=== PATIENT | female | born 1945 | race Caucasian/White ===

== ENCOUNTER 2017-02-15 08:50 | Inpatient (IN) | payer MEDICARE, OTHER ==
[~2017-02-15] VITALS: Ht 160 cm; Wt 68.1 kg
[~2017-02-15 08:50] MED LIST: ACET325T9 PO; ALBU0.63 NEB; ASPI-482 PO; BENZ1LOZ48 MM; CALC-614 PO; CALC0.2530 PO; CALC600T4 PO; CETI10CA PO; DIGO125T16 PO; DOCU-150 PO; ESOM40CA PO; GLIP5TAB10 PO; GUAI600T47 PO; IBUP200C9 PO; LEVO100T PO; LEVO112T2 PO; METO5TAB PO; MULT-488 PO; OLOP2.5D OP; OXYM15MI4 NS; POLY17PO5 PO; SIMV20TA PO; SPIR1TAB PO; UBID30CA9 PO; calcium citrate
--- NOTE | 2017-02-15 09:40 | PHYS DOC ---
Past History Past Medical History: Cancer, CHF, COPD, Diabetes, Hypertension, Pneumonia, Other Past Surgical History: Cholecystectomy, Pacemaker, Tonsillectomy, Other Smoking: Non-smoker Alcohol Use: None Drug Use: None Adult General Chief Complaint Chief Complaint: SYNCOPE HPI HPI Patient is a 71 year old female who presents with complaint of head injury after suffering a syncopal episode this morning. Patient states that she was walking out to her car. Patient states that she started feeling short of breath but denied any lightheadedness prior to her episode. Patient states that she does not know how long she was unconscious but thinks it was at least for a few minutes. Patient states that she remembers waking up looking up to the [place] and realizing that she was on the roadway in the parking lot. Patient states that she felt very nauseous immediately after the episode. Patient states that currently she has a headache and continued nausea. Patient rates her pain currently as 3 out of 10. Patient has not taken any medications to help with her symptoms. Patient has history of pulmonary fibrosis secondary to radiation treatments for lymphoma several years ago and history of congestive heart failure. Patient denied any chest pain associated with her episode. Review of Systems Review of Systems Constitutional: Denies fever or chills [] Eyes: Denies change in visual acuity, redness, or eye pain [] HENT: Head injury [] Respiratory: Dyspnea on exertion [] Cardiovascular: Syncope, denies chest pain or edema [] GI: Denies abdominal pain, nausea, vomiting, bloody stools or diarrhea [] : Denies dysuria or hematuria [] Musculoskeletal: Denies back pain or joint pain [] Integument: Denies rash or skin lesions [] Neurologic: Denies headache, focal weakness or sensory changes [] Allergies Allergies Allergies Coded Allergies Type Severity Reaction Last Updated Verified bacitracin Allergy Intermediate Rash 11/09/15 Yes polymyxin B Allergy Intermediate Rash 11/09/15 Yes iodine Allergy Unknown 11/09/15 Yes metoprolol Allergy Unknown 11/09/15 Yes shellfish derived Allergy Unknown 11/09/15 Yes Physical Exam Physical Exam Constitutional: Alert, afebrile, no acute distress. [] HENT: Normocephalic, 0.5 cm abrasion to occipital scalp with minimal oozing of blood, bilateral external ears normal, oropharynx moist, no oral exudates, nose normal. [] Eyes: PERRLA, EOMI, conjunctiva normal, no discharge. [] Neck: Normal range of motion, no tenderness, supple, no stridor. [] Cardiovascular:Heart rate regular rhythm, no murmur [] Lungs & Thorax: Bilateral breath sounds clear to auscultation [] Abdomen: Bowel sounds normal, soft, no tenderness, no masses, no pulsatile masses. [] Skin: Warm, dry, no erythema, no rash. [] Back: No tenderness, no CVA tenderness. [] Extremities: No tenderness, no cyanosis, no clubbing, ROM intact, no edema. [] Neurologic: Alert and oriented X 3, normal motor function, normal sensory function, no focal deficits noted. [] Current Patient Data Vital Signs Vital Signs Date Time Temp Pulse Resp B/P (MAP) Pulse Ox O2 Delivery O2 Flow Rate FiO2 02/15/17 08:55 88 20 90 Room Air EKG EKG Interpreted by me: Heart rate 80, sinus rhythm, normal intervals, T-wave inversions in the lateral leads, no acute ST elevations or depressions, no acute changes from previous EKG on September 30, 2015 [] Radiology/Procedures Radiology/[place] [address] IMAGING REPORT Signed PATIENT: ALFONSO HUGHES ACCOUNT: [id number] : 1945 LOCATION: ER AGE: 71 SEX: F EXAM STATUS: PRE ER ORD. PHYSICIAN: MILENA SAUL MD REASON: fall, occipital head injury PROCEDURE: CT HEAD WO CONTRAST CT of the head without contrast, 02/15/2017: History: Syncope, fall, laceration There is mild cerebral atrophy. The ventricles are within normal limits in size. There is no shift of the midline structures. There is no evidence of acute intracranial hemorrhage or mass effect. There appears to be a small scalp hematoma in the left parietal region. No underlying fracture is evident. IMPRESSION: No acute intracranial abnormality is detected. RS Compliance Statement: One or more of the following individualized dose reduction techniques were utilized for this examination: 1. Automated exposure control 2. Adjustment of the mA and/or kV according to patient size 3. Use of iterative reconstruction technique DICTATED AND SIGNED BY: PADILLA TABOR MD DATE: 02/15/17 1009 CC: MILENA SAUL MD; [place] [address] IMAGING REPORT Signed PATIENT: ALFONSO HUGHES ACCOUNT: [id number] : 1945 LOCATION: ER AGE: 71 SEX: F EXAM STATUS: PRE ER ORD. PHYSICIAN: MILENA SAUL MD REASON: syncope, shortness of breath PROCEDURE: PORTABLE CHEST 1V Indication syncopal episode. Protocol study. A single view of the chest was obtained. Comparison is made to an examination 09/30/2015. Heart size and pulmonary vessels appear within normal limits. Bipolar cardiac pacing device and prosthetic cardiac valves are noted. There is slight blunting of the left costophrenic angle similar to the previous exam. A consolidated pneumonia is not seen on the single view submitted. Acute finding is not apparent. IMPRESSION: No acute finding seen in the chest DICTATED AND SIGNED BY: HARJIT SAVAGE MD DATE: 02/15/17 1027 CC: MILENA SAUL MD; JANNIE LOPES [] Course & Med Decision Making Course & Med Decision Making Pertinent Labs and Imaging studies reviewed. (See chart for details) The patient's occipital abrasion was cleansed with saline soaked gauze, treated with antibiotic ointment, and dressed with clean gauze. Patient's head CT negative for acute injury. The patient's symptoms are consistent with concussion symptoms from her head injury. Of concern is the patient's syncopal episode which appears to have happened without prodromal symptoms. Given patient 's health history it would be appropriate for the patient to be admitted for further monitoring and evaluation of the cause of her syncopal episode. I spoke with the patient's laborer poultry hatchery, Dr. Palafox, and he agreed to consult on patient in hospital. Patient was admitted to Dr. Dietz. Alexandrea Disclaimer Alexandrea Disclaimer This chart was dictated in whole or in part using Voice Recognition software in a busy, high-work load, and often noisy Emergency Department environment. It may contain unintended and wholly unrecognized errors or omissions. Departure Departure: Impression: Primary Impression: Syncope and collapse Additional Impressions: Closed head injury with concussion Pulmonary fibrosis Congestive heart failure Disposition: 01 HOME, SELF-CARE Admitting Physician: Patti Dietz Condition: STABLE Referrals: JANNIE LOPES (PCP) Problem Qualifiers Additional Impressions: Closed head injury with concussion Encounter type: initial encounter Loss of consciousness presence/duration: with LOC of 30 min or less Qualified Codes: S06.0X1A - Concussion with loss of consciousness of 30 minutes or less, initial encounter Congestive heart failure Congestive heart failure type: unspecified congestive heart failure type Congestive heart failure chronicity: chronic Qualified Codes: I50.9 - Heart failure, unspecified MILENA SAUL MD February 15, 2017 09:40
--- NOTE | 2017-02-15 09:51 | EKG ---
[address] [address] Test Date: 2017-02-15 Test Time: 09:09:23 Pat Name: ALFONSO HUGHES Department: Room: Gender: F Healthcare Social Worker: : 1945 Requested By: MILENA SAUL Order Number: [id number] Reading MD: Fuad Ernst Measurements Intervals Anthony Rate: 80 P: 59 DE: 174 QRS: -24 QRSD: 116 T: 110 QT: 394 QTc: 458 Interpretive Statements SINUS RHYTHM LEFT ATRIAL ABNORMALITY LEFTWARD AXIS INCOMPLETE RIGHT BUNDLE BRANCH BLOCK LVH WITH REPOLARIZATION ABNORMALITY ABNORMAL ECG Electronically Signed On 02-15-2017 13:25:08 CDT by Fuad Ernst
[2017-02-15] MEDS ORDERED: IV NORMAL SALINE 500ML 500 ML IV SCH (10:00)
[2017-02-15] MEDS ORDERED: ONDANSETRON PF 4 MG/2 ML VIAL. IV ONE (10:00)
[2017-02-15] MEDS ORDERED: fentaNYL PF 100 MCG/2 ML VIAL IV ONE (10:00)
[2017-02-15 10:02] LABS: BASO % 0 % (0-3); EOS # 0.1 x10^3/uL (0.0-0.7); EOS % 1 % (0-3); HEMATOCRIT 42.7 % (36.0-47.0); LYMPH % 10 % (24-48); MEAN CORPUSCULAR HEMOGLOBIN 27 pg (25-35); MEAN CORPUSCULAR HGB CONC 33 g/dL (31-37); MEAN CORPUSCULAR VOLUME 83 fL (79-100); MONO # 0.9 x10^3/uL (0.0-1.1); MONO % 9 % (0-9); NEUT # 7.9 x10^3uL (1.8-7.7); NEUT % 79 % (31-73); PLATELET COUNT 145 x10^3/uL (140-400); RED BLOOD COUNT 5.12 x10^6/uL (3.50-5.40); RED CELL DISTRIBUTION WIDTH 15.5 % (11.5-14.5)
--- NOTE | 2017-02-15 10:13 | RAD ---
CT of the head without contrast, 02/15/2017: History: Syncope, fall, laceration There is mild cerebral atrophy. The ventricles are within normal limits in size. There is no shift of the midline structures. There is no evidence of acute intracranial hemorrhage or mass effect. There appears to be a small scalp hematoma in the left parietal region. No underlying fracture is evident. IMPRESSION: No acute intracranial abnormality is detected. PQRS Compliance Statement: One or more of the following individualized dose reduction techniques were utilized for this examination: 1. Automated exposure control 2. Adjustment of the mA and/or kV according to patient size 3. Use of iterative reconstruction technique
[2017-02-15 10:22] LABS: ALBUMIN 3.5 g/dL (3.4-5.0); CALCIUM 8.1 mg/dL (8.5-10.1); CREATININE 1.4 mg/dL (0.6-1.0); GFR 36.9; MAGNESIUM 1.9 mg/dL (1.8-2.4); POTASSIUM 4.2 mmol/L (3.5-5.1); TOTAL PROTEIN 6.9 g/dL (6.4-8.2)
--- NOTE | 2017-02-15 10:34 | RAD ---
Indication syncopal episode. Protocol study. A single view of the chest was obtained. Comparison is made to an examination 09/30/2015. Heart size and pulmonary vessels appear within normal limits. Bipolar cardiac pacing device and prosthetic cardiac valves are noted. There is slight blunting of the left costophrenic angle similar to the previous exam. A consolidated pneumonia is not seen on the single view submitted. Acute finding is not apparent. IMPRESSION: No acute finding seen in the chest
[2017-02-15 10:40] LABS: BILIRUBIN,URINE NEG (NEG); CLARITY,URINE CLEAR; COLOR,URINE YELLOW; GLUCOSE,URINE NEG (NEG)
[2017-02-15 10:41] LABS: BACTERIA,URINE 0 /HPF (0-FEW); NITRITE,URINE NEG (NEG); SQUAMOUS EPITHELIAL CELL,UR OCC /LPF; UROBILINOGEN,URINE 0.2 mg/dL (0.2 mg/dL); WBC,URINE RARE /HPF (0-4)
[2017-02-15] MEDS ORDERED: IV NORMAL SALINE 1,000ML 1,000 ML IV SCH (11:20)
[2017-02-15] MEDS ORDERED: ACETAMINOPHEN 325 MG TABLET PO PRN (11:30)
[2017-02-15] MEDS ORDERED: fentaNYL PF 100 MCG/2 ML VIAL IV PRN (11:30)
[2017-02-15] MEDS ORDERED: ONDANSETRON PF 4 MG/2 ML VIAL. IV PRN ×2 (11:55→13:00)
[2017-02-15 13:02] VITALS: BP 172/82
[2017-02-15] MEDS ORDERED: AZEL137S3 NS (13:35)
[2017-02-15] MEDS ORDERED: PANT40TA3 PO (13:37)
[2017-02-15] MEDS ORDERED: CALC-614 PO (13:43)
[2017-02-15] MEDS ORDERED: LEVO125T5 PO (13:45)
--- NOTE | 2017-02-15 14:10 | HP ---
ADMIT DATE: 02/15/2017 REASON FOR ADMISSION: Syncopal episode. 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 She had an appointment with conservation enforcement officer today and was walking out to her car, she felt like she was getting short of breath, but without warning she states she blacked out. When she woke up, she was lying flat on her back, on the black top. She got up, got to her car. She was even planning on going to her appointment except that the back of her head was bleeding. She went in to see the nurses at the [facility] [place] and was transported to the Emergency Room at [facility]. This has never happened previously. 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 In 2005, she had two aortic bovine valve placed and a mitral porcine valve placed because of extensive calcifications in her valves. She has had also 50 basal cell carcinomas removed, mostly secondary to radiation. She has pulmonary fibrosis from the radiation, which she states she has about 50% lung function, but is not currently on oxygen. She has mild type 2 diabetes. In 2013, she had a colonoscopy and had a polyp removed, which bled and she became severely anemic and required blood transfusions and was subsequently severely iron deficient and required iron transfusions over the course of several weeks. She also has chronic lymphedema of the left arm. PAST SURGICAL HISTORY: Cholecystectomy, cataracts 2015, pacemaker placement, aortic bovine valve and mitral porcine valve replacement, bilateral mastectomies and thyroidectomy. ALLERGIES: BACITRACIN, IODINE, METOPROLOL, POLYMYXIN B, AND SHELLFISH. CURRENT MEDICATIONS: Reviewed and are available on the MAR. SOCIAL HISTORY: Does not smoke. No alcohol. 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 She also has her Master's from [employer]. 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 FAMILY HISTORY: She is one of six children. One sister with diabetes. Mother of lymphoma at 86, father at 46 in 1960 of a gas explosion at the [facility]. REVIEW OF SYSTEMS: The patient does report a slowly progressive shortness of breath, but still does not require oxygen. Otherwise, she does get recurrent basal cell carcinomas, but otherwise does not have any specific complaints related to her health. OBJECTIVE: VITAL SIGNS: Blood pressure 164/86, pulse 79, respirations 18, pulse ox 98% on 2 liters. GENERAL: Pleasant 71-year-old, in no acute distress. HEENT: External ear canals are normal. She has a dressing on her head covering the laceration. Her pupils were equal, round, react to light. Extraocular muscles were intact. Her nose is patent. Her throat was clear. NECK: Supple, without adenopathy. There is are bilateral carotid bruits, but I believe they from the cardiac murmurs, particularly on the left, radiates into the left neck. CARDIOVASCULAR: She has a systolic murmur with a normal hearing click on the aortic area and pulmonic area. Louder systolic murmur in the pulmonic area. ABDOMEN: Soft, nontender, no masses palpated. EXTREMITIES: Without edema. Also, she has lymphedema of the left arm. BREASTS: Bilateral mastectomies. NEUROLOGIC: Mental status: She is alert and oriented, excellent historian. Cranial nerves were intact. Sap Pi Architect strength was good. Equal motor strength. LABORATORY DATA: Normal CBC. Chemistry: BUN is 21; creatinine 1.4; glucose is 177, that is a random; calcium is 8.1. Alkaline phosphatase slightly elevated at 139. Coags were normal. Urinalysis: Small amount of protein, 100 mg/dL. CT of the head was negative. IMAGING: Chest x-ray without acute findings. It has the appearance of pulmonary fibrosis, although that is not mentioned. ASSESSMENT: 1. Syncopal episode, unknown etiology. 2. Extensive medical history after radiation from Hodgkin's lymphoma at age 6, to include thyroidectomy; bilateral aortic and mitral valve replacement; multiple basal cell carcinomas; gastroparesis; pulmonary fibrosis; pacemaker; history of GI bleed, which is resolved obviously. PLAN: Cardiology consult, Neurology consult, echocardiogram, carotid Dopplers and we will go from there. PAUL MARMOLEJO DO DR: Doug JOB#: [id number] / [id number]
[2017-02-15] MEDS ORDERED: METOCLOPRAMIDE 5 MG TABLET PO PRN (14:15)
[2017-02-15 14:58] VITALS: BP 114/65
[2017-02-15 15:05] VITALS: BP 114/64
[2017-02-15 15:06] VITALS: BP 143/66
[2017-02-15] MEDS: glipiZIDE 5 MG TABLET PO SCH ×2 (16:57→17:00)
[2017-02-15] MEDS ORDERED: glipiZIDE 5 MG TABLET PO SCH (17:00)
[2017-02-15 19:10] VITALS: BP 112/61
[2017-02-15] MEDS ORDERED: ALBUTEROL SULFATE 2.5 MG/3 ML NEBU. NEB SCH (20:00)
[2017-02-15] MEDS: CALCIUM CARBONATE 500 MG TABLET PO SCH (20:28)
[2017-02-15] MEDS: AZELASTINE NASAL SPRAY 30ML BOTTLE. NS SCH (20:28)
[2017-02-15] MEDS ORDERED: SIMVASTATIN 20 MG TABLET PO SCH (21:00)
[2017-02-15] MEDS ORDERED: NON FORMULARY ITEM (Albuterol Sulfate (Albuterol Sulfate Neb Soln) 0.63 MG) NEB SCH (21:00)
[2017-02-15] MEDS: ALBUTEROL SULFATE 2.5 MG/3 ML NEBU. NEB SCH (21:50)
[2017-02-15 22:50] VITALS: BP 93/48
[2017-02-16 02:59] VITALS: BP 101/56
[2017-02-16 05:15] VITALS: BP 98/50
[2017-02-16 06:37] LABS: BASO % 0 % (0-3); EOS # 0.1 x10^3/uL (0.0-0.7); EOS % 2 % (0-3); HEMATOCRIT 39.5 % (36.0-47.0); HEMOGLOBIN 12.8 g/dL (12.0-15.5); LYMPH # 1.2 x10^3/uL (1.0-4.8); LYMPH % 12 % (24-48); MEAN CORPUSCULAR HEMOGLOBIN 27 pg (25-35); MEAN CORPUSCULAR HGB CONC 32 g/dL (31-37); MEAN CORPUSCULAR VOLUME 84 fL (79-100); MONO % 11 % (0-9); NEUT % 75 % (31-73); PLATELET COUNT 141 x10^3/uL (140-400); RED BLOOD COUNT 4.73 x10^6/uL (3.50-5.40); RED CELL DISTRIBUTION WIDTH 15.5 % (11.5-14.5); WHITE BLOOD COUNT 9.4 x10^3/uL (4.0-11.0)
[2017-02-16 06:50] LABS: ALBUMIN 3.1 g/dL (3.4-5.0); CALCIUM 7.6 mg/dL (8.5-10.1); CREATININE 1.3 mg/dL (0.6-1.0); GFR 40.2; POTASSIUM 4.1 mmol/L (3.5-5.1); TOTAL BILIRUBIN 0.7 mg/dL (0.2-1.0); TOTAL PROTEIN 6.2 g/dL (6.4-8.2)
[2017-02-16] MEDS ORDERED: LEVOTHYROXINE 125 MCG TABLET PO SCH (07:00)
--- NOTE | 2017-02-16 07:43 | RAD ---
Carotid ultrasound, 02/15/2017: History: Syncope Duplex evaluation of the carotid arteries in neck was performed including grayscale, color-flow and spectral Doppler analysis. There is moderate partially calcified plaque in the common carotid arteries and at both carotid bifurcations. The peak systolic velocity in the right internal carotid artery is 110 cm per sec with an end-diastolic velocity 16 cm/s. The internal carotid to common carotid artery ratio is 1.2. The Doppler findings suggest narrowing in the 0-50% diameter range. On the left the peak systolic velocity in the internal carotid artery is 90 cm/s. The end-diastolic velocity at this level is 22 cm/s. The internal carotid to common carotid artery ratio is 1.1. Antegrade flow is present in both vertebral arteries in the neck. IMPRESSION: Moderate atherosclerotic plaquing in both common carotid arteries and at the carotid bifurcations with underlying luminal narrowing of the proximal internal carotid arteries in the 0-50% diameter range bilaterally. Note: Stenosis calculations for CT, MRA and conventional angiography are based upon determination of the distal ICA diameter in accordance with the NASCET methodology. Stenosis calculations for Doppler studies are derived from validated velocity criteria which are known to correlate with NASCET methodology of determining stenosis.
[2017-02-16] MEDS: glipiZIDE 5 MG TABLET PO SCH ×2 (07:59→08:00)
[2017-02-16] MEDS: AZELASTINE NASAL SPRAY 30ML BOTTLE. NS SCH (08:00)
[2017-02-16] MEDS: CALCIUM CARBONATE 500 MG TABLET PO SCH (08:02)
[2017-02-16] MEDS ORDERED: PANTOPRAZOLE 40 MG TABLET. PO SCH (09:00)
[2017-02-16] MEDS ORDERED: hydroCHLOROthiazide 25 MG TABLET PO SCH (09:00)
[2017-02-16] MEDS ORDERED: ASPIRIN ENTERIC COATED 81 MG TABLET.DR. PO SCH (09:00)
[2017-02-16] MEDS ORDERED: SPIRONOLACTONE 25 MG TABLET PO SCH (09:00)
[2017-02-16] MEDS ORDERED: DIGOXIN 125 MCG TABLET PO SCH (09:00)
[2017-02-16] MEDS ORDERED: CALCITRIOL 0.25 MCG CAPSULE PO SCH (09:00)
--- NOTE | 2017-02-16 09:02 | PDOC2 ---
CONSULT Date of Admission DATE: 02/16/17 TIME: 08:47 Reason for Consult: Syncope Referring Physician: Dr Dietz Problem List Problems Medical Problems: (1) Closed head injury with concussion Status: Acute (2) Congestive heart failure Status: Acute (3) Pulmonary fibrosis Status: Acute (4) Syncope and collapse Status: Acute History of Present Illness Ms. Spencer is a 71-year-old female who presented to the ER yesterday with chief complaint of syncope. The patient has a history of Hodgkin's lymphoma status post wall radiation several years ago. She subsequently developed mitral and aortic valve disease and has since had a bioprosthetic valve placed in the mitral and aortic disease. In addition, she has known moderate coronary disease based on a cardiac catheterization done several years ago history of present illness of the proximal right coronary artery, and 50 percent stenosis of the obtuse marginal branch. She also has underlying essential hypertension hyperlipidemia, sick sinus syndrome status post permanent pacemaker, and chronic constriction with heart failure with preserved ejection fraction. Over the last several months she has noticed progressive dyspnea. 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 when was stopped to talk. She feels she used most of her air and then when tried to walk to her car could not make it. She stopped to get her bearings and the next thing she knew was waking up looking at the gloria. Got up into car and realized she had hit her head so presented to the nursing station whol called EMS. She denies any recent episodes of chest pains or shortness of breath. She denies any palpitations, or previous episodes. ROS: Review of 10 organ systems is negative except as above. Allergies: Bacitracin, iodine, metoprolol, polymyxin B, shellfish Medications albuterol sulfate 2.5 mg/0.5 mL solution for nebulization Aspir-81 81 mg tablet,delayed releaseTake 1 tablet(s) every day by oral route. AZELASTINE HCL .1 % SOLN CALCITRIOL .25 MCG CAPS GLIPIZIDE ER 2.5 MG TB24 LEVOTHYROXINE SODIUM 112 MCG TABS metoclopramide hcl 5 mg tabs as needed before bedtime NexIUM 40 mg capsule,delayed release Take 1 capsule(s) every day by oral route as needed. SIMVASTATIN 20 MG TABS SPIRONOLACTONE/[id number] MG TABS Family History Father - No current problems or disability Mother - No current problems or disability Social History Smoking Status: Never smoker Non-smoker Surgical History Surgical History not reviewed (last reviewed 04/04/2016) Cardiac Pacemaker - 10/18/2011 AORTIC MITRAL VALVE REPLACEMENT Past Medical History Atrial Fibrillation: Y Congestive Heart Failure (CHF): Y Pacemaker: Y Valvular Heart Disease: Y Diabetes: Y - type 2 Breast Cancer: Y Other Cancer: (no answer) - Hodgkins lymphoma Multiple skin cancers Adenocarcinoma of thyroid Physical Exam Constitutional: General Appearance: well-nourished and appears stated age. Level of Distress: comfortable. Psychiatric: Mental Status: alert and normal affect. Orientation: oriented to time, place, and person. Eyes: Lids and Conjunctivae: anicteric and no discharge. Pupils: PERRLA. ENMT: Ears: no lesions on external ear. Nose: no lesions on external nose. Oropharynx: no cyanosis or pallor. Neck: Neck: supple and no masses. Carotid Arteries: no bruits or thrills and bilateral normal upstroke. Jugular Veins: normal jugular venous pressure. Cervical Lymph Nodes: non tender or not enlarged. Thyroid: not enlarged or non tender. Lungs: Respiratory Effort: unlabored. Chest Exam: no chest wall tenderness. Auscultation: no wheezing or rhonchi and clear. Cardiovascular: Precordial Exam: non displaced focal PMI. Rate And Rhythm: regular. Heart Sounds: no rub, gallop, or click and normal S1 and physiologically split S2. Systolic Murmur: grade 2/6 at the apex and the RUSB. Extremities: no cyanosis or edema. Peripheral Pulses: Pulses: full and equal in all extremities except if noted. Radial Pulse: normal. Femoral Pulse: normal. Abdomen: Inspection and Palpation: non distended or tender, no bruit or masses, and soft. Neurologic: Neurological: Grossly intact with no focal deficits. Skin: Inspection and Palpation: warm and dry. Procedure: LEXISCAN NUCLEAR STRESS TEST IMPRESSION (03/24/2016): Normal myocardial perfusion scan Normal left ventricular systolic function Ejection fraction: 70%. There is no stress induced left ventricular dilatation or increase in lung to heart ratio. The stress ECG is non-interpretable in view of baseline abnormalities. There were PVCs during Lexiscan infusion There was no stress induced chest pain. No previous study available for comparison. CAROTID ARTERY DUPLEX STUDY IMPRESSION ( 03/24/16):. Mild intimal disease in carotid bulb, ICA, ECA and CCA bilaterally.. There were no significant flow limiting lesions in carotid bulb, ICA, ECA or CCA. Doppler analysis revealed < 50% stenosis in carotid arteries bilaterally.. Normal antegrade flow was noted in both vertebral arteries.. ECHOCARDIOGRAM IMPRESSION (02/29/2016):. There is mild to moderate concentric left ventricular hypertrophy. There is paradoxical septal motion consistent with a pacemaker. The left ventricular systolic function is normal with an estimated ejection fraction of 60-65%. There is evidence of left ventricular pseudonormalization suggestive of stage II diastolic dysfunction. There is a pacemaker or defibrillator lead seen in the right heart chambers. The inferior vena cava is dilated but does respond normally to respiration, which is consistent with mildly elevated right atrial pressure. There is a bioprosthetic valve with calcification. There is a peak gradient of 71mmHg and a mean gradient of 8mmHg, which is acceptable. There is a bioprosthetic mitral valve with calcification and a mitral valve area of 2.5 cm2. There is mild tricuspid regurgitation. The estimated pulmonary artery systolic pressure is 55 mmHg, consistent with moderate pulmonary hypertension. Compared to the report (images were not available for review) of the study dated 09/25/2014, the pulmonary hypertension has increased slightly. Assessment / Plan 1. Syncope - Possible from hypoxia - plan for 6 min walk. Echo is pending. Negative enzymes and pacemaker check in ER showed appropriate function. 2. Coronary arteriosclerosis in ione artery - Last stress test was in 02/2016 showing normal perfusion. She has been having progressive dyspnea. 3. History of tissue graft aortic and mitral valve replacement - plan for echo 4. Pulmonary hypertension - 6 min walk to assess O2 needs 5. Chronic diastolic heart failure - Clinically compensated 6. Sick sinus syndrome s/p Pacemaker - function appropriate 7 Benign essential hypertension - controlled continue same medications. 8. Hyperlipidemia - Continue statin therapy 9. Moderate carotid disease - continue aspirin and statin therapy Current Medications Current Medications Sodium Chloride 500 ml @ 500 mls/hr Q1H IV Last administered on 02/15/17 09:58 ; Start 02/15/17 at 10:00; Stop 02/15/17 at 10:00; Status DC Fentanyl Citrate (Fentanyl 2ml Vial) 25 mcg 1X ONCE IV Last administered on 09:58; Start 02/15/17 at 10:00; Stop 02/15/17 at 10:01; Status DC Ondansetron HCl (Zofran) 4 mg 1X ONCE IV Last administered on 02/15/17 09:58; Start 02/15/17 at 10:00; Stop 02/15/17 at 10:01; Status DC Ondansetron HCl (Zofran) 4 mg PRN Q4HRS PRN IV NAUSEA/VOMITING; Start 02/15/17 at 11:55; Stop 02/16/17 at 11:54 Fentanyl Citrate (Fentanyl 2ml Vial) 25 mcg PRN Q2HR PRN IV PAIN; Start at 11:30; Stop 02/16/17 at 11:29 Sodium Chloride 1,000 ml @ 75 mls/hr [id number] IV ; Start 02/15/17 at 11:20; Stop 02/15/17 at 14:19; Status DC Acetaminophen (Tylenol) 650 mg PRN Q4HRS PRN PO FEVER; Start 02/15/17 at 11:30; Stop 02/16/17 at 11:29 Ondansetron HCl (Zofran) 4 mg PRN Q8HRS PRN IV NAUSEA/VOMITING; Start 02/15/17 at 13:00 Aspirin (Aspirin Enteric Coated) 81 mg DAILY PO Last administered on 02/16/17 08:01; Start 02/16/17 at 09:00 Azelastine HCl (Astelin) 1 spray BID NS Last administered on 02/16/17 08:00; Start 02/15/17 at 21:00 Calcitriol (Rocaltrol) 0.25 mcg DAILY PO Last administered on 02/16/17 08:03; Start 02/16/17 at 09:00 Digoxin (Lanoxin) 125 mcg DAILY PO Last administered on 02/16/17 08:01; Start 02/16/17 at 09:00 Glipizide (Glucotrol) 5 mg BIDWMEALS PO ; Start 02/15/17 at 17:00; Stop 02/16/17 at 08:14; Status DC Levothyroxine Sodium (Synthroid) 125 mcg DAILY07 PO Last administered on 06:04; Start 02/16/17 at 07:00 Metoclopramide HCl (Reglan) 5 mg PRN QHS PRN PO acid reflux; Start 02/15/17 at 14:15 Pantoprazole Sodium (Protonix) 40 mg DAILY PO Last administered on 02/16/17 08: 02; Start 02/16/17 at 09:00 Simvastatin (Zocor) 20 mg HS PO Last administered on 02/15/17 20:28; Start 02/15 at 21:00 Non-Formulary Medication 0.63 mg BID NEB ; Start 02/15/17 at 21:00; Stop 02/15/17 at 21:00; Status DC Calcium Carbonate/ Glycine (Oscal) 500 mg BID PO Last administered on 02/16/17 08:02; Start 02/15/17 at 21:00 Non-Formulary Medication 400 mg QODAY PO ; Start 02/17/17 at 09:00; Stop 02/17/17 at 09:00; Status DC Non-Formulary Medication 1 each QODAY PO ; Start 02/17/17 at 09:00; Stop 02/17/17 at 09:00; Status DC Spironolactone (Aldactone) 25 mg DAILY PO Last administered on 02/16/17 08:00; Start 02/16/17 at 09:00 Hydrochlorothiazide (Hydrodiuril) 25 mg DAILY PO Last administered on 02/16/17 08:00; Start 02/16/17 at 09:00 Albuterol Sulfate (Ventolin) 2.5 mg RTBID NEB ; Start 02/15/17 at 20:00; Stop 02/15/17 at 20:00; Status DC Albuterol Sulfate (Ventolin) 0.63 mg RTBID NEB Last administered on 02/15/17 21 :50; Start 02/15/17 at 20:00 Glipizide (Glucotrol) 2.5 mg DAILYWSUP PO ; Start 02/16/17 at 17:00; Stop at 17:00; Status DC Glipizide (Glucotrol) 2.5 mg DAILYWSUP PO Last administered on 02/15/17 17:00; Start 02/15/17 at 17:00 Glipizide (Glucotrol) 5 mg DAILYWLUN PO ; Start 02/16/17 at 12:00 Active Scripts Active Protonix (Pantoprazole Sodium) 40 Mg Tablet.dr 1 Tab PO DAILY Azelastine Hcl 137 Mcg/0.137 Ml [place].pump 1 Spr NS BID Reported Levothyroxine Sodium 125 Mcg Tablet 1 Tab PO DAILY Calcium Citrate 200 Mg Tablet 400 Mg PO BID Albuterol Sulfate Neb Soln (Albuterol Sulfate) 0.63 Mg/3 Ml Vial.neb 0.63 Mg NEB BID Glipizide 5 Mg Tablet 5 Mg PO DAILYWLUN Metoclopramide Hcl 5 Mg Tablet 5 Mg PO PRN QHS PRN Calcium Citrate 200 Mg Tablet 400 Mg PO QODAY Zocor (Simvastatin) 20 Mg Tablet 20 Mg PO HS Calcitriol 0.25 Mcg Capsule 0.25 Mcg PO DAILY Lanoxin (Digoxin) 125 Mcg Tablet 125 Mcg PO DAILY Aldactazide 25-25 Tablet (Spironolact/Hydrochlorothiazid) 1 Each Tablet 1 Each PO QODAY Mucinex (Guaifenesin) 600 Mg Tablet.er 600 Mg PO TWICE WEEKLY Aspir 81 (Aspirin) 81 Mg Tablet. 81 Mg PO DAILY Allergies: Coded Allergies: bacitracin (Verified Allergy, Intermediate, Rash, 11/09/15) polymyxin B (Verified Allergy, Intermediate, Rash, 11/09/15) iodine (Verified Allergy, Unknown, 11/09/15) Pt states that she is only allergic to the IV iodine. The topical iodine "does not give me any problems". metoprolol (Verified Allergy, Unknown, 11/09/15) shellfish derived (Verified Allergy, Unknown, 11/09/15) VITALS Vital Signs Date Time Temp Pulse Resp B/P (MAP) Pulse Ox O2 Delivery O2 Flow Rate FiO2 02/16/17 08:01 78 98/50 02/16/17 05:15 98.0 17 97 Nasal Cannula 1.0 Labs Laboratory Tests Test 02/15/17 09:10 02/15/17 09:43 02/15/17 10:15 02/15/17 16:39 Glucose (Fingerstick) 173 mg/dL (70-99) 147 mg/dL (70-99) White Blood Count 10.0 x10^3/uL (4.0-11.0) Red Blood Count 5.12 x10^6/uL (3.50-5.40) Hemoglobin 14.0 g/dL (12.0-15.5) Hematocrit 42.7 % (36.0-47.0) Mean Corpuscular Volume 83 fL (79-100) Mean Corpuscular Hemoglobin 27 pg (25-35) Mean Corpuscular Hemoglobin Concent 33 g/dL (31-37) Red Cell Distribution Width 15.5 % (11.5-14.5) Platelet Count 145 x10^3/uL (140-400) Neutrophils (%) (Auto) 79 % (31-73) Lymphocytes (%) (Auto) 10 % (24-48) Monocytes (%) (Auto) 9 % (0-9) Eosinophils (%) (Auto) 1 % (0-3) Basophils (%) (Auto) 0 % (0-3) Neutrophils # (Auto) 7.9 x10^3uL (1.8-7.7) Lymphocytes # (Auto) 1.0 x10^3/uL (1.0-4.8) Monocytes # (Auto) 0.9 x10^3/uL (0.0-1.1) Eosinophils # (Auto) 0.1 x10^3/uL (0.0-0.7) Basophils # (Auto) 0.0 x10^3/uL (0.0-0.2) Prothrombin Time 11.0 SEC (9.4-11.4) Prothromb Time International Ratio 1.1 (0.9-1.1) Activated Partial Thromboplast Time 24 SEC (23-33) Sodium Level 139 mmol/L (136-145) Potassium Level 4.2 mmol/L (3.5-5.1) Chloride Level 101 mmol/L (98-107) Carbon Dioxide Level 30 mmol/L (21-32) Anion Gap 8 (6-14) Blood Urea Nitrogen 21 mg/dL (7-20) Creatinine 1.4 mg/dL (0.6-1.0) Estimated GFR (Cockcroft-Gault) 36.9 BUN/Creatinine Ratio 15 (6-20) Glucose Level 177 mg/dL (70-99) Calcium Level 8.1 mg/dL (8.5-10.1) Magnesium Level 1.9 mg/dL (1.8-2.4) Total Bilirubin 1.0 mg/dL (0.2-1.0) Aspartate Amino Transf (AST/SGOT) 29 U/L (15-37) Alanine Aminotransferase (ALT/SGPT) 36 U/L (14-59) Alkaline Phosphatase 139 U/L (46-116) Creatine Kinase 43 U/L (26-192) Creatine Kinase MB (Mass) 0.5 ng/mL (0.0-3.6) Creatine Kinase MB Relative Index 1.2 % (0-4) Troponin I Quantitative < 0.017 ng/mL (0-0.055) Total Protein 6.9 g/dL (6.4-8.2) Albumin 3.5 g/dL (3.4-5.0) Albumin/Globulin Ratio 1.0 (1.0-1.7) Urine Collection Type Void Urine Color Yellow Urine Clarity Clear Urine pH 7.0 Urine Specific [place] 1.015 Urine Protein 100 mg/dl (NEG-TRACE) Urine Glucose (UA) Neg mg/dL (NEG) Urine Ketones (Stick) Neg mg/dL (NEG) Urine Blood Small (NEG) Urine Nitrite Neg (NEG) Urine Bilirubin Neg (NEG) Urine Urobilinogen Dipstick 0.2 mg/dL (0.2 mg/dL) Urine Leukocyte Esterase Neg (NEG) Urine RBC 1-2 /HPF (0-2) Urine WBC Rare /HPF (0-4) Urine Squamous Epithelial Cells Occ /LPF Urine Bacteria 0 /HPF (0-FEW) Test 02/15/17 20:10 02/16/17 06:01 Glucose (Fingerstick) 170 mg/dL (70-99) White Blood Count 9.4 x10^3/uL (4.0-11.0) Red Blood Count 4.73 x10^6/uL (3.50-5.40) Hemoglobin 12.8 g/dL (12.0-15.5) Hematocrit 39.5 % (36.0-47.0) Mean Corpuscular Volume 84 fL (79-100) Mean Corpuscular Hemoglobin 27 pg (25-35) Mean Corpuscular Hemoglobin Concent 32 g/dL (31-37) Red Cell Distribution Width 15.5 % (11.5-14.5) Platelet Count 141 x10^3/uL (140-400) Neutrophils (%) (Auto) 75 % (31-73) Lymphocytes (%) (Auto) 12 % (24-48) Monocytes (%) (Auto) 11 % (0-9) Eosinophils (%) (Auto) 2 % (0-3) Basophils (%) (Auto) 0 % (0-3) Neutrophils # (Auto) 7.0 x10^3uL (1.8-7.7) Lymphocytes # (Auto) 1.2 x10^3/uL (1.0-4.8) Monocytes # (Auto) 1.0 x10^3/uL (0.0-1.1) Eosinophils # (Auto) 0.1 x10^3/uL (0.0-0.7) Basophils # (Auto) 0.0 x10^3/uL (0.0-0.2) Sodium Level 142 mmol/L (136-145) Potassium Level 4.1 mmol/L (3.5-5.1) Chloride Level 105 mmol/L (98-107) Carbon Dioxide Level 29 mmol/L (21-32) Anion Gap 8 (6-14) Blood Urea Nitrogen 21 mg/dL (7-20) Creatinine 1.3 mg/dL (0.6-1.0) Estimated GFR (Cockcroft-Gault) 40.2 BUN/Creatinine Ratio 16 (6-20) Glucose Level 100 mg/dL (70-99) Calcium Level 7.6 mg/dL (8.5-10.1) Magnesium Level 2.0 mg/dL (1.8-2.4) Total Bilirubin 0.7 mg/dL (0.2-1.0) Aspartate Amino Transf (AST/SGOT) 18 U/L (15-37) Alanine Aminotransferase (ALT/SGPT) 28 U/L (14-59) Alkaline Phosphatase 117 U/L (46-116) Total Protein 6.2 g/dL (6.4-8.2) Albumin 3.1 g/dL (3.4-5.0) Albumin/Globulin Ratio 1.0 (1.0-1.7) HUY COVARRUBIAS APRN February 16, 2017 09:02
--- NOTE | 2017-02-16 09:03 | CARD ---
APPROVED REPORT EXAM: Two-dimensional and M-mode echocardiogram with Doppler and color Doppler. Other Information Quality : Average Rhythm : NSR INDICATION Syncope 2D DIMENSIONS RVDd1.8 (2.9-3.5cm)Left Atrium(2D)3.6 (1.6-4.0cm) IVSd0.9 (0.7-1.1cm)Aortic Root(2D)2.5 (2.0-3.7cm) LVDd4.1 (3.9-5.9cm)LVOT Diameter2.0 (1.8-2.4cm) PWd1.0 (0.7-1.1cm)LVDs2.0 (2.5-4.0cm) FS (%) 50.1 %SV60.1 ml LVEF(%)61.9 (>50%) Aortic Valve AoV Peak Aidan.219.2cm/sAoV VTI38.4cm AO Peak GR.19.2mmHgLVOT Peak Aidan.129.6cm/s LVOT VTI 27.01cmAO Mean GR.10mmHg ADAMA (VMAX)1.78ds4JEY (VTI)2.21cm2 Mitral Valve MV E Gzswfpcm786.3cm/sMV E Peak Gr.19mmHg MV DECEL [id number] A Hhtooegg20.1cm/s MV E Mean Gr.7mmHgMV HPJ57nw E/A Ratio3.1MV A Uzkzcytu196yd MVA (PHT)4.50cm2 Tricuspid Valve TR P. Rjcdykbo312fo/sRAP FUCERLAO29hnDa TR Peak Gr.87laPyADOP11iyLe LEFT VENTRICLE The left ventricle is normal size. There is normal left ventricular wall thickness. Left ventricle sy stolic function is normal. The Ejection Fraction is 60-65%. Septal motion consistent with post-operat kvng state. The left ventricular diastolic function and filling is normal for age. RIGHT VENTRICLE The right ventricle is normal size. The right ventricular systolic function is normal. There is a pac emaker lead seen in the RV/RA. ATRIA The left atrium size is normal. The right atrium size is normal. The interatrial septum is intact wit h no evidence for an atrial septal defect or patent foramen ovale as noted on 2-D or Doppler imaging. AORTIC VALVE The aortic valve is moderately calcified. Doppler and Color Flow revealed no significant aortic regur gitation. There is no significant aortic valvular stenosis. There is a bioprosthetic aortic valve pro sthesis. Bioprosthesis leaflets are not well visualized. MITRAL VALVE Mitral annular calcification is severe. The mitral valve leaflets are thickened and calcified. There is no mitral valve stenosis. Doppler and Color Flow revealed mild mitral regurgitation. There is a pr osthetic mitral valve. TRICUSPID VALVE The tricuspid valve is not well visualized. Doppler and Color Flow revealed moderate to severe tricus pid regurgitation. There is severe pulmonary hypertension. The PA pressure was estimated at 88 mmHg. PULMONIC VALVE The pulmonic valve is not well visualized. Doppler and Color Flow revealed mild pulmonic valvular reg urgitation. GREAT VESSELS The aortic root is normal in size. Pulmonary veins not recorded. The IVC is dilated and collapses <50 % with inspiration. PERICARDIAL EFFUSION There is no evidence of significant pericardial effusion. Critical Notification Critical Value: No <Conclusion> Left ventricle systolic function is normal. The Ejection Fraction is 60-65%. Septal motion consistent with post-operative state. The right ventricular systolic function is normal. There is a bioprosthetic aortic valve prosthesis. Bioprosthesis leaflets are not well visualized. There is a prosthetic mitral valve. Doppler and Color Flow revealed moderate to severe tricuspid regurgitation. There is severe pulmonary hypertension. The PA pressure was estimated at 88 mmHg. Doppler and Color Flow revealed mild pulmonic valvular regurgitation. There is no evidence of significant pericardial effusion.
[2017-02-16] MEDS: ALBUTEROL SULFATE 2.5 MG/3 ML NEBU. NEB SCH (09:46)
[2017-02-16 10:49] VITALS: BP 115/60
--- NOTE | 2017-02-16 11:02 | CONS ---
DATE OF CONSULTATION: 02/15/2017 NEUROLOGIC CONSULT REFERRING PHYSICIAN: Dr. Patti Dietz. REASON FOR CONSULTATION: Syncope. 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 According to the patient, she was walking to her car, all of a sudden she became very short of breath and subsequently she lost consciousness and fell backwards on grounds. The patient wakeup quickly. She was somewhat confused for a short period of time, but she did not have any convulsions or prolonged confusion. The patient stated the night before, she was very constipated and she took 2 tablets of Dulcolax and took Metamucil and prune juice in the morning for constipation. The patient denies any prior symptoms before the fall as palpitation, weakness or paresthesia. In the Emergency Room, her pulse was 88 with oxygen saturations of 90%. The patient stated she used to have low oxygen saturation. Initial nonenhanced head CT scan revealed no acute intracranial abnormalities. Small scalp hematoma in the right region secondary to recent fall. Currently, the patient complains of mild headaches over the left occipital region. She denies any medical or neurological complaints otherwise. PAST MEDICAL HISTORY: Quite extensive, includes stage 3 history of chronic kidney disease, status post aortic and mitral valve replacement; history of Hodgkin's lymphoma diagnosed at age of 6, required extensive therapy of radiation and chemotherapy; anemia; history of colonoscopy and required removal of a polyp; chronic lymphedema of the left arm; skin cancer; breast cancer required bilateral mastectomy; history of iron deficiency anemia. PAST SURGICAL HISTORY: Significant for bilateral mastectomy, cholecystectomy, status post lumbar spine surgery. Cataract removal in 2016, pacemaker placement and aortic and mitral valve replacements along with thyroidectomy. SOCIAL HISTORY: The patient resides in a mother' home at [facility]. She denies smoking, alcohol drinking, or illicit drug use. ALLERGIES: BACITRACIN, IODINE, METOPROLOL, POLYMYXIN B AND SHELLFISH. REVIEW OF SYSTEMS: As mentioned above in history of present illness, otherwise unremarkable. FAMILY HISTORY: Sister has diabetes mellitus. Mother from lymphoma at the age of 86. Her father at age in 1960 due to gas explosion. PHYSICAL EXAMINATION: GENERAL: Very pleasant, well-developed, well-nourished sister, not in any acute distress. VITAL SIGNS: Blood pressure 146/66, respiratory rate 18, pulse is 78 and regular, temperature is 98, and oxygen saturation is 97% on 2 liters by nasal cannula. HEENT: Normocephalic, atraumatic, otherwise unremarkable. NECK: Supple. Negative for carotid bruit, lymphadenopathy or thyromegaly. LUNGS: Clear to A and P. CARDIOVASCULAR: Regular rate and rhythm, normal S1, S2. There is no S3, S4 or murmur. ABDOMEN: Soft. Bowel sounds positive. EXTREMITIES: Negative for cyanosis, but positive for lymphedema in the left upper extremity. Gait not tested at this point. Deep tendon reflexes were symmetric and hypoactive without pathologic responses. MOTOR EXAMINATION: No focal muscle bulk was seen. The tone is normal. The strength is 4/5 throughout. Sensory examination revealed normal pinprick and light touch senses throughout. Deep tendon reflexes are symmetric and hypoactive with absent Achilles responses. Gait not tested. DIAGNOSTIC: Head CAT scan as described above in the history of present illness revealed no acute intracranial process. Carotid Doppler study has been done, but the result is not available and chest x-ray revealed no evidence of acute intracranial process. LABORATORY DATA: CBC revealed white blood cells of 10,000, hemoglobin 14, hematocrit 42.7, platelet count 145,000. Chemistry revealed sodium 139, potassium 4.2, chloride 101, CO2 of 30, BUN 21, creatinine 1.4, glucose 177, calcium 8.1. Troponin level less than 0.017. Urinalysis negative for cyanosis, clubbing, or pitting edema. PT is 11, INR 1.1 and APTT is 24. IMPRESSION: 1.Fainting followed by a fall, likely represent syncope of unknown etiology; however, it could be multifactorial including hypoxemia, rule out carotid artery stenosis and dehydration. The patient does not have any orthostatic hypertension today. 2.Status post pacemaker placement, rule out pacemaker dysfunction. 3.Multiple medical problems include a history of Hodgkin's lymphoma, pulmonary fibrosis, pacemaker placement, gastroparesis. RECOMMENDATIONS: 1. Continue with current management initiated by Dr. Dietz. 2. Await for carotid Doppler study. 3. To check pacemaker functions. 4. Await for cardiology evaluation and careful rehydration. M Ana RAYMOND MD DR: Kaycee JOB#: [id number] / [id number]
--- NOTE | 2017-02-16 11:31 | PN ---
DATE: SUBJECTIVE: The patient denies any new medical neurological complaints. The headache has resolved. The patient was found to have low oxygen throughout the night. The oxygen saturation dropped to 80s. She was placed on 2 liters of nasal cannula throughout the night. She denies chest pain, shortness of breath or palpitation, dysarthria, dysphagia, weakness or paresthesia. 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 VITAL SIGNS: Blood pressure is 98/50, respiratory rate 17, pulse is 78 and regular, temperature is 98 and oxygen saturation is 97% on 1 liter by nasal cannula. HEENT: Normocephalic, atraumatic, otherwise unremarkable. NECK: Supple. Negative for carotid bruit, lymphadenopathy or thyromegaly. LUNGS: With diminished breath sounds throughout. CARDIOVASCULAR: 2/6 systolic murmur with clicking cardiac sound secondary to valve replacement. ABDOMEN: Soft. Bowel sounds positive. EXTREMITIES: Negative for cyanosis, clubbing or pitting edema. NEUROLOGIC: Normal mental status and intact cranial nerves. There is no evidence of focal motor or sensory deficit. Deep tendon reflexes are symmetric and hypoactive with absent Achilles responses. Gait: The stance is steady. IMPRESSION: 1. Syncope, probably due to hypoxemia. Seizure-like activities is a remote possibility. 2. Multiple medical problems include hypertension, hyperlipidemia, diabetes mellitus, status post pacemaker placement and aortic and mitral valve replacements and history of Hodgkin's lymphoma in remission. RECOMMENDATIONS: 1. Continue with current management initiated by Dr. Dietz. 2. To check oxygen saturation today. 3. Physical therapy as tolerated. 4. Continue with current medications. 5. Await cardiology evaluation. M Ana RAYMOND MD DR: JINA/bre JOB#: [id number] / [id number]
[2017-02-16] MEDS ORDERED: glipiZIDE 5 MG TABLET PO SCH ×2 (12:00→17:00)
--- NOTE | 2017-02-16 22:41 | DS ---
DATE OF DISCHARGE: 02/16/2017 DISCHARGE DIAGNOSES: 1. Syncopal episode, likely secondary to hypoxemia. 2. Worsening pulmonary hypertension with increase of pulmonary pressure to 88 from 55 back in 2016. 3. Hypoxemia secondary to pulmonary hypertension - will now need continuous oxygen after failed 6-minute and nocturnal oximetry. 4. Bilateral aortic and mitral valve replacements. 5. Pacemaker status. 6. Pulmonary fibrosis. 7. Multiple areas of basal cell carcinoma, which the patient will continue to follow up with collision technician. 8. Chronic kidney disease, stage 3. 9. Type 2 diabetes. 10. Chronic hypocalcemia, on replacement. HOSPITAL COURSE: A 71-year-old female, who had syncopal episode in the parking lot over at ____. She had an extensive workup and was seen by Dr. Palafox, neurologist and Dr. Palafox, cook syrup maker. Subsequent echo has revealed that her pulmonary artery pressure has increased from 55 in 2016 to now 88. She had a 6-minute walk, which she failed and a nocturnal oximetry, which she also failed and will need to be on continuous oxygen. She will be seeing her offline editor as soon as possible. OBJECTIVE: VITAL SIGNS: Blood pressure 115/60, pulse 85, respirations 22, temperature 98.6, pulse ox is 92% on room air and up to 97% on room air. GENERAL: Her color is slightly pale. Her nose is patent. Her throat was clear. NECK: Supple. LUNGS: With some crackles in the bases. CARDIOVASCULAR: Regular rhythm and rate. ABDOMEN: Soft, nontender. EXTREMITIES: With nonpitting lymphedema. DISPOSITION: Back to ____. Per Cardiology, she will continue on the current medications that she is on. Follow up with the offline editor as soon as possible and oxygen prescription given. PAUL MRAMOLEJO DO DR: MAGY/bre JOB#: [id number] / [id number]
[2017-02-17] MEDS ORDERED: CALCIUM CITRATE 400 MG PO SCH (09:00)
[2017-02-17] MEDS ORDERED: SPIRONOLACT PO SCH (09:00)
[2017-02-17] MEDS ORDERED: HYDROCHLOROTHIAZID PO SCH (09:00)
== END 2017-02-16 13:00 | disposition home or self-care (01) | DRG 315 ==
LOC: ER 08:50 → ICU 11:24
PROVIDERS: ADMIT Family Medicine; ATTEND Family Medicine
DX: I27.2 Other secondary pulmonary hypertension (principal); I13.0 Hypertensive heart and chronic kidney disease with heart failure and stage 1 through stage 4 chronic kidney disease, or unspecified chronic kidney disease; I50.32 Chronic diastolic (congestive) heart failure; S06.0X9A Concussion with loss of consciousness of unspecified duration, initial encounter; R09.02 Hypoxemia; E11.43 Type 2 diabetes mellitus with diabetic autonomic (poly)neuropathy; E11.22 Type 2 diabetes mellitus with diabetic chronic kidney disease; E78.5 Hyperlipidemia, unspecified; E83.51 Hypocalcemia; I25.10 Atherosclerotic heart disease of native coronary artery without angina pectoris; I48.91 Unspecified atrial fibrillation; I49.5 Sick sinus syndrome; J84.10 Pulmonary fibrosis, unspecified; J44.9 Chronic obstructive pulmonary disease, unspecified; K31.84 Gastroparesis; K59.00 Constipation, unspecified; W19.XXXA Unspecified fall, initial encounter; I08.0 Rheumatic disorders of both mitral and aortic valves; N18.3 Chronic kidney disease, stage 3 (moderate); Z80.7 Family history of other malignant neoplasms of lymphoid, hematopoietic and related tissues; Z83.3 Family history of diabetes mellitus; Z85.3 Personal history of malignant neoplasm of breast; Z85.71 Personal history of Hodgkin lymphoma; Z85.72 Personal history of non-Hodgkin lymphomas; Z85.828 Personal history of other malignant neoplasm of skin; Z90.13 Acquired absence of bilateral breasts and nipples; Z92.3 Personal history of irradiation; Z95.0 Presence of cardiac pacemaker; Z95.2 Presence of prosthetic heart valve; Z87.01 Personal history of pneumonia (recurrent); Z90.49 Acquired absence of other specified parts of digestive tract; Z88.8 Allergy status to other drugs, medicaments and biological substances; Z88.1 Allergy status to other antibiotic agents; Z91.041 Radiographic dye allergy status; Z91.013 Allergy to seafood; Y93.89 Activity, other specified; Y92.89 Other specified places as the place of occurrence of the external cause; Y99.8 Other external cause status; Y92.481 Parking lot as the place of occurrence of the external cause; S01.91XA Laceration without foreign body of unspecified part of head, initial encounter
CPT/HCPCS: 36415; 70450; 71010; 80053; 81001; 82553; 82947; 83735; 84484; 85027; 85610; 85730; 87641; 93005; 93306; 93880; 94620; 94640; 94799; 96374; 96375; J2405; J3010; J7040; J7613; 99285-25

== ENCOUNTER → 2017-06-29 | Outpatient (CLI) | payer MEDICARE, OTHER ==
[~2017-06-29] MED LIST changes: +AZEL137S3 NS; +LEVO125T5 PO; +PANT40TA3 PO
[2017-06-29 06:37] LABS: BASO % 1 % (0-3); EOS # 0.2 x10^3/uL (0.0-0.7); EOS % 2 % (0-3); HEMATOCRIT 37.3 % (36.0-47.0); HEMOGLOBIN 12.5 g/dL (12.0-15.5); LYMPH # 1.1 x10^3/uL (1.0-4.8); LYMPH % 11 % (24-48); MEAN CORPUSCULAR HEMOGLOBIN 29 pg (25-35); MEAN CORPUSCULAR HGB CONC 34 g/dL (31-37); MEAN CORPUSCULAR VOLUME 85 fL (79-100); MONO % 10 % (0-9); NEUT # 7.4 x10^3uL (1.8-7.7); NEUT % 76 % (31-73); PLATELET COUNT 150 x10^3/uL (140-400); RED BLOOD COUNT 4.38 x10^6/uL (3.50-5.40); WHITE BLOOD COUNT 9.7 x10^3/uL (4.0-11.0)
[2017-06-29 07:00] LABS: CALCIUM 8.4 mg/dL (8.5-10.1); CREATININE 1.3 mg/dL (0.6-1.0); POTASSIUM 4.1 mmol/L (3.5-5.1)
== END ==
LOC: SPEC 06:14
PROVIDERS: ATTEND Nurse Practitioner
DX: I27.81 Cor pulmonale (chronic) (principal)
CPT/HCPCS: 36415; 80048; 83880; 85025

== ENCOUNTER → 2017-07-10 | Outpatient (CLI) | payer MEDICARE, OTHER ==
[2017-07-10 10:40] LABS: CALCIUM 9.3 mg/dL (8.5-10.1); CREATININE 1.3 mg/dL (0.6-1.0); POTASSIUM 4.6 mmol/L (3.5-5.1)
== END | disposition home or self-care (01) ==
LOC: SPEC 09:20
PROVIDERS: ATTEND Nurse Practitioner
DX: I13.0 Hypertensive heart and chronic kidney disease with heart failure and stage 1 through stage 4 chronic kidney disease, or unspecified chronic kidney disease (principal); I50.32 Chronic diastolic (congestive) heart failure; N18.3 Chronic kidney disease, stage 3 (moderate); E11.22 Type 2 diabetes mellitus with diabetic chronic kidney disease
CPT/HCPCS: 36415; 80048; 83880

== ENCOUNTER → 2017-07-25 | Outpatient (CLI) | payer MEDICARE, OTHER ==
[2017-07-25 07:00] LABS: CREATININE 1.2 mg/dL (0.6-1.0); GFR 43.9; POTASSIUM 4.2 mmol/L (3.5-5.1)
== END | disposition home or self-care (01) ==
LOC: SPEC 06:32
PROVIDERS: ATTEND Nurse Practitioner
DX: I13.0 Hypertensive heart and chronic kidney disease with heart failure and stage 1 through stage 4 chronic kidney disease, or unspecified chronic kidney disease (principal); N18.3 Chronic kidney disease, stage 3 (moderate); I50.42 Chronic combined systolic (congestive) and diastolic (congestive) heart failure; E11.22 Type 2 diabetes mellitus with diabetic chronic kidney disease
CPT/HCPCS: 36415; 80048; 83880

== ENCOUNTER → 2017-09-21 | Outpatient (CLI) | payer MEDICARE, OTHER ==
--- NOTE | 2017-09-21 10:20 | RAD ---
Examination: CT abdomen without contrast History: History of weight loss, history of bilateral breast cancer Comparison: 11/21/2013 Technique: Axial CT images of the abdomen was performed with oral contrast. Coronal and sagittal reformats are performed PQRS Compliance Statement: One or more of the following individualized dose reduction techniques were utilized for this examination: 1. Automated exposure control 2. Adjustment of the mA and/or kV according to patient size 3. Use of iterative reconstruction technique Findings: Small bilateral pleural effusions are identified with bibasal lung groundglass airspace opacities likely edema or congestive changes. Partially visualized moderate cardiomegaly. Diffuse calcification of the mitral valve partially visualized. There is a cyst identified in the left lobe of the liver measuring 4.5 cm likely a cyst similar to prior exam. Cholecystectomy changes identified. There is a tiny hypodensity identified in the right lobe of the liver measuring 5 mm, best visualized on image 59 , difficult to characterize on this examination. Few calcified granulomas identified in the spleen. The visualized right adrenal grossly appears unremarkable. There is a small nodule identified in the left adrenal gland measuring 1 cm likely adrenal adenoma grossly similar to prior exam. The stomach is mildly distended. The visualized pancreas grossly appears unremarkable as the partially visualized small bowel grossly appears unremarkable Multiple colonic diverticula identified in the partially visualized colon. Punctate bilateral intrarenal collecting system calculi identified with the largest measuring 4 mm in the right kidney. Mild degenerative changes lumbar spine. Impression: 1. Small bilateral pleural effusions are identified with bibasal lung groundglass airspace opacities likely edema or congestive changes. 2. Unchanged cyst identified in the left lobe of the liver. There is a tiny hypodensity identified in the right lobe of the liver measuring 5 mm, best visualized on image 59 , difficult to characterize on this examination. 3. Multiple colonic diverticula in the partially visualized colon. 4. Punctate bilateral intrarenal collecting system calculi. 5. Unchanged left adrenal adenoma.
== END | disposition home or self-care (01) ==
LOC: CT 09:06
PROVIDERS: ATTEND Internal Medicine
DX: K57.30 Diverticulosis of large intestine without perforation or abscess without bleeding (principal); K31.89 Other diseases of stomach and duodenum; K76.89 Other specified diseases of liver; I70.0 Atherosclerosis of aorta; D35.02 Benign neoplasm of left adrenal gland; J90 Pleural effusion, not elsewhere classified; M47.896 Other spondylosis, lumbar region; N20.0 Calculus of kidney; Z85.3 Personal history of malignant neoplasm of breast; Z90.49 Acquired absence of other specified parts of digestive tract
CPT/HCPCS: 74150

== ENCOUNTER → 2017-11-05 | Outpatient (CLI) | payer MEDICARE, OTHER ==
[2017-11-05 20:00] LABS: BASO % 0 % (0-3); EOS # 0.3 x10^3/uL (0.0-0.7); EOS % 2 % (0-3); HEMATOCRIT 36.7 % (36.0-47.0); LYMPH # 1.2 x10^3/uL (1.0-4.8); LYMPH % 10 % (24-48); MEAN CORPUSCULAR HEMOGLOBIN 27 pg (25-35); MEAN CORPUSCULAR HGB CONC 33 g/dL (31-37); MEAN CORPUSCULAR VOLUME 83 fL (79-100); MONO # 1.3 x10^3/uL (0.0-1.1); MONO % 11 % (0-9); NEUT # 9.2 x10^3uL (1.8-7.7); NEUT % 76 % (31-73); PLATELET COUNT 219 x10^3/uL (140-400); RED BLOOD COUNT 4.41 x10^6/uL (3.50-5.40); RED CELL DISTRIBUTION WIDTH 16.4 % (11.5-14.5)
[2017-11-05 20:05] LABS: CALCIUM 8.8 mg/dL (8.5-10.1); CREATININE 1.3 mg/dL (0.6-1.0); POTASSIUM 4.1 mmol/L (3.5-5.1)
== END | disposition home or self-care (01) ==
LOC: SPEC 18:48
PROVIDERS: ATTEND Nuclear Medicine Nuclear Cardiology
DX: I13.0 Hypertensive heart and chronic kidney disease with heart failure and stage 1 through stage 4 chronic kidney disease, or unspecified chronic kidney disease (principal); I50.32 Chronic diastolic (congestive) heart failure; E11.22 Type 2 diabetes mellitus with diabetic chronic kidney disease; N18.3 Chronic kidney disease, stage 3 (moderate); Z95.0 Presence of cardiac pacemaker
CPT/HCPCS: 36415; 80048; 85025

== ENCOUNTER → 2017-11-07 | Outpatient (CLI) | payer MEDICARE, OTHER ==
[2017-11-07 08:27] LABS: BASO # 0.1 x10^3/uL (0.0-0.2); BASO % 1 % (0-3); EOS # 0.3 x10^3/uL (0.0-0.7); EOS % 2 % (0-3); HEMATOCRIT 37.1 % (36.0-47.0); HEMOGLOBIN 12.2 g/dL (12.0-15.5); LYMPH # 1.2 x10^3/uL (1.0-4.8); LYMPH % 9 % (24-48); MEAN CORPUSCULAR HEMOGLOBIN 27 pg (25-35); MEAN CORPUSCULAR HGB CONC 33 g/dL (31-37); MEAN CORPUSCULAR VOLUME 83 fL (79-100); MONO # 1.5 x10^3/uL (0.0-1.1); MONO % 11 % (0-9); NEUT # 10.8 x10^3uL (1.8-7.7); NEUT % 78 % (31-73); PLATELET COUNT 227 x10^3/uL (140-400); RED BLOOD COUNT 4.46 x10^6/uL (3.50-5.40); RED CELL DISTRIBUTION WIDTH 16.7 % (11.5-14.5); WHITE BLOOD COUNT 13.8 x10^3/uL (4.0-11.0)
[2017-11-07 08:41] LABS: ALBUMIN 3.5 g/dL (3.4-5.0); ALBUMIN/GLOBULIN RATIO 1.1 (1.0-1.7); C REACTIVE PROTEIN 31.6 mg/L (0-3.3); CALCIUM 8.7 mg/dL (8.5-10.1); CREATININE 1.2 mg/dL (0.6-1.0); GFR 43.9; POTASSIUM 4.1 mmol/L (3.5-5.1); TOTAL BILIRUBIN 2.2 mg/dL (0.2-1.0); TOTAL PROTEIN 6.6 g/dL (6.4-8.2)
[2017-11-07 09:31] LABS: SEDIMENTATION RATE 35 (0-25)
== END | disposition home or self-care (01) ==
LOC: SPEC 08:10
PROVIDERS: ATTEND Internal Medicine
DX: I13.0 Hypertensive heart and chronic kidney disease with heart failure and stage 1 through stage 4 chronic kidney disease, or unspecified chronic kidney disease (principal); I50.42 Chronic combined systolic (congestive) and diastolic (congestive) heart failure; E11.22 Type 2 diabetes mellitus with diabetic chronic kidney disease; N18.3 Chronic kidney disease, stage 3 (moderate); I50.32 Chronic diastolic (congestive) heart failure
CPT/HCPCS: 36415; 80053; 84145; 85025; 85651; 86140

== ENCOUNTER → 2017-11-21 | Outpatient (CLI) | payer MEDICARE, OTHER ==
[~2017-11-21] MED LIST changes: -DIGO125T16 PO; +DIGO125T79 PO
[2017-11-21 07:41] LABS: CALCIUM 8.6 mg/dL (8.5-10.1); CREATININE 1.1 mg/dL (0.6-1.0); GFR 48.6
[2017-11-21 07:43] LABS: POTASSIUM 4.1 mmol/L (3.5-5.1)
== END | disposition home or self-care (01) ==
LOC: SPEC 07:15
DX: I13.0 Hypertensive heart and chronic kidney disease with heart failure and stage 1 through stage 4 chronic kidney disease, or unspecified chronic kidney disease (principal); E11.22 Type 2 diabetes mellitus with diabetic chronic kidney disease; I50.42 Chronic combined systolic (congestive) and diastolic (congestive) heart failure; N18.3 Chronic kidney disease, stage 3 (moderate)
CPT/HCPCS: 36415; 80048

== ENCOUNTER → 2017-11-30 | Outpatient (CLI) | payer MEDICARE, OTHER ==
[2017-11-30 11:06] LABS: CALCIUM 7.9 mg/dL (8.5-10.1); CREATININE 1.3 mg/dL (0.6-1.0)
== END | disposition home or self-care (01) ==
LOC: SPEC 10:25
PROVIDERS: ATTEND Internal Medicine
DX: I13.0 Hypertensive heart and chronic kidney disease with heart failure and stage 1 through stage 4 chronic kidney disease, or unspecified chronic kidney disease (principal); I50.42 Chronic combined systolic (congestive) and diastolic (congestive) heart failure; E11.22 Type 2 diabetes mellitus with diabetic chronic kidney disease; N18.3 Chronic kidney disease, stage 3 (moderate)
CPT/HCPCS: 36415; 80048

== ENCOUNTER → 2017-12-11 | Outpatient (CLI) | payer MEDICARE, OTHER ==
[2017-12-11 09:37] LABS: ALBUMIN 3.2 g/dL (3.4-5.0); ALBUMIN/GLOBULIN RATIO 1.1 (1.0-1.7); CALCIUM 8.7 mg/dL (8.5-10.1); CREATININE 1.3 mg/dL (0.6-1.0); POTASSIUM 4.2 mmol/L (3.5-5.1); TOTAL BILIRUBIN 1.5 mg/dL (0.2-1.0)
== END | disposition home or self-care (01) ==
LOC: SPEC 09:12
DX: I34.0 Nonrheumatic mitral (valve) insufficiency (principal)
CPT/HCPCS: 36415; 80053

== ENCOUNTER → 2017-12-24 | Outpatient (CLI) | payer MEDICARE, OTHER ==
[2017-12-24 12:53] LABS: CALCIUM 8.2 mg/dL (8.5-10.1); CREATININE 1.2 mg/dL (0.6-1.0); GFR 43.9; POTASSIUM 4.2 mmol/L (3.5-5.1)
== END | disposition home or self-care (01) ==
LOC: SPEC 12:28
PROVIDERS: ATTEND Thoracic Surgery (Cardiothoracic Vascular Surgery)
DX: I50.42 Chronic combined systolic (congestive) and diastolic (congestive) heart failure (principal)
CPT/HCPCS: 36415; 80048